=== PATIENT | female | born 2000 | race Caucasian/White ===

== ENCOUNTER 2021-06-30 11:21 | Emergency (ER) | payer MEDICAID, SELFPAY ==
[2021-06-30 11:22] VITALS: BP 133/76; PULSE 94; RESP 16; TEMP 36.6; O2SAT 98; BMI 30.1
--- NOTE | 2021-06-30 11:56 | EDS_ITS ---
HPI History of Present Illness Chief Complaint: Nausea/Vomiting Informant: patient Narrative Narrative: 21-year-old female presenting with vomiting. Patient states she began feeling nauseated last night. She states she threw up and had dry heaves throughout the night. She denies diarrhea. Denies abdominal pain or pelvic pain. Denies vaginal bleeding. She is 29 weeks . She states she has had body aches and chills. Denies fever. She is unsure if the milk she drank last night was bad. Denies other complaints. Prior similar symptoms: Yes Recent Illness/Hospitalization: No PFSH PFS Medical History (Updated 06/30/21 @ 13:[address] Bel Quintero MD) Anxiety Depression Home Medications 1 tab OTHER DAILY 06/30/21 [History Last Taken Unknown] magnesium 100 mg PO DAILY 06/30/21 [History Last Taken Unknown] sertraline [Zoloft] 100 mg PO DAILY 06/30/21 [History Last Taken Unknown] Allergy/AdvReac Type Severity Reaction Status Date / Time No Known Allergies Allergy Verified 06/30/21 11:25 Social History Smoking Status: Current every day smoker tobacco type: smokeless tobacco ROS ROS ED Constitutional Constitutional ED: Denies fever(s) Eyes Eyes: Denies change in vision ENT ENT ED: Denies rhinorrhea or sore throat Cardiovascular Cardiovascular: Denies chest pain or palpitations Respiratory/Chest Respiratory/Chest: Denies cough or dyspnea Gastrointestinal Gastrointestinal: Reports nausea and vomiting; Denies abdominal pain or diarrhea Genitourinary Genitourinary ED: Denies dysuria Musculoskeletal Musculoskeletal: Denies myalgias Integumentary Denies rash Neurologic Neurologic: Denies headache(s) Psychiatric Psychiatric: Denies suicidal thoughts EXAM Physical Exam Const Vital Signs: 06/30/21 11:22 06/30/21 13:25 Temperature 97.8 F Temperature Source Temporal Pulse Rate 94 84 Respiratory Rate 16 Blood Pressure 133/76 H 110/76 Blood Pressure Mean 95 87 Pulse Ox 98 98 Oxygen Delivery Method Room Air Room Air Positive well nourished and well developed General Appearance ED: well developed HEENT Reports normocephalic and head/scalp atraumatic Eyes PERRL and EOMs intact bilaterally Neck supple General: Negative for tenderness Chest Wall inspection of chest normal Resp normal respiratory effort and clear to auscultation bilaterally Cardio regular rate and regular rhythm GI non-tender GI Narrative: Gravid Palpation: soft; Negative for guarding or rebound tenderness present no CVA tenderness Extremity normal to inspection Neuro oriented x3 Sensorium / Orientation: alert Psych mental status grossly normal MDM MDM MDM Narrative Medical decision making narrative: Patient was given IV fluids, Zofran. CBC, chemistries are unremarkable. On reevaluation she is feeling improved. She is able to tolerate p.o. with emergency department. 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 Advised to follow-up as outpatient. Advised to return to the ED for worsening complaints. Lab Data Attestation: I reviewed the patient's lab results. Labs: Laboratory Results - last 24 hr 06/30/21 06/30/21 12:00 12:00 WBC 10.0 RBC 4.07 L Hgb 11.2 L Hct 34.1 L MCV 83.8 MCH 27.5 MCHC 32.8 RDW Std Deviation 39.3 RDW Coeff of Gareth 12.8 Plt Count 151 MPV 10.9 Immature Gran % (Auto) 0.300 Neut % (Auto) 82.1 H Lymph % (Auto) 12.6 L [place] % (Auto) 4.3 Eos % (Auto) 0.3 Baso % (Auto) 0.4 Absolute Neuts (auto) 8.2 H Absolute Lymphs (auto) 1.26 Nucleated RBC % 0 Sodium 137 Potassium 3.6 Chloride 105 Carbon Dioxide 23.0 Anion Gap 9 BUN 5 L Creatinine 0.41 L Estim Creat Clear Calc 181.06 Est GFR (MDRD) Af Amer 255 Est GFR (MDRD) Non-Af 211 BUN/Creatinine Ratio 12.3 Glucose 101 Calcium 9.0 Discharge Plan Triage Chief Complaint: Nausea/Vomiting ED Provider: Bel Quintero Dx/Rx/DC Orders Clinical Impression: Vomiting during Instructions: ED Vomiting (Adult) Prescriptions: No Action sertraline [Zoloft] 100 mg Tablet 100 mg PO DAILY RF: 0 magnesium 100 mg Tablet 100 mg PO DAILY RF: 0 1 tab 1 tab OTHER DAILY RF: 0 Primary Care Provider: Care Physician,No Primary Referrals: Gomez Elliott MD [STAFF PHYSICIAN] - Care Physician,No Primary [Primary Care Provider] - Disposition Disposition: Home, Self Care
[2021-06-30] MEDS: 0.9% Normal Saline 1,000 ML 1000 ML IV (12:09)
[2021-06-30] MEDS: Ondansetron 4 MG/2 ML Vial IV (12:10)
[2021-06-30 12:11] LABS: Absolute Lymphocyte Count 1.26 X10^3/uL (0.83-4.51); Absolute Neutrophil Count 8.2 X10^3/uL (2.0-7.7); Basophil# 0.04 X10^3/uL; Basophil% 0.4 % (0-1); Eosinophil# 0.03 X10^3/uL; Eosinophils% 0.3 % (0-5); Hematocrit 34.1 % (37-47); Hemoglobin 11.2 g/dL (12.0-15.0); Lymphocyte # 1.26 X10^3/ul (0.83-4.51); Lymphocyte % 12.6 % (19-41); Mean Corp Hgb Conc 32.8 g/dL (32-36); Mean Corpuscular Hgb 27.5 pg (27.0-32.0); Mean Corpuscular Volume 83.8 fL (81-99); Mean Platelet Vol. 10.9 fl (6.2-12.0); Monocyte# 0.43 X10^3/uL; Monocyte% 4.3 % (0-10); NRBC Flagged by Analyzer 0 % (0-5); Neutrophil # 8.21 X10^3/uL (2.7-7.7); Neutrophil % 82.1 % (47-70); Platelet Count 151 K/mm3 (150-450); RBC Distribution Width CV 12.8 % (11.6-14.6); RBC Distribution Width SD 39.3 fl (35.1-43.9); Red Blood Count 4.07 M/mm3 (4.2-5.4)
[2021-06-30 12:25] LABS: Anion Gap 9 (5-15); BUN 5 mg/dL (7-18); BUN/Creat Ratio 12.3 RATIO (10-20); Chloride 105 mmol/L (98-107); Creatinine, Serum 0.41 mg/dL (0.55-1.02); EST Glomerular Filtration Rate 211 mL/min (>60); Est Glom Filt Rate - Afr Amer 255 mL/min (>60); Estimated Creatinine Clearance 181.06 ml/min; Glucose 101 mg/dL (74-106); Potassium 3.6 mmol/L (3.5-5.1); Sodium Level 137 mmol/L (136-145)
[2021-06-30 13:25] VITALS: BP 110/76; PULSE 84; O2SAT 98
== END 2021-06-30 14:03 | disposition home or self-care (01) ==
PROVIDERS: Emergency Provider Emergency Medicine
DX: O21.2 Late vomiting of pregnancy (principal); O99.343 Other mental disorders complicating pregnancy, third trimester; O99.333 Smoking (tobacco) complicating pregnancy, third trimester; F41.9 Anxiety disorder, unspecified; F32.9 Major depressive disorder, single episode, unspecified; F17.200 Nicotine dependence, unspecified, uncomplicated; Z3A.29 29 weeks gestation of pregnancy; Z79.899 Other long term (current) drug therapy
CPT/HCPCS: 80048; 85025; 87426; 96374; 99284; J7030; J2405

== ENCOUNTER 2021-08-30 19:50 | Outpatient (CLI) | payer MEDICAID, SELFPAY ==
[2021-08-30 19:55] VITALS: BMI 31.3
[2021-08-30 20:02] VITALS: BP 130/77; PULSE 89; TEMP 36.7
[2021-08-30 21:04] LABS: Color, Urine Yellow (Yellow); Glucose, Dipstick Normal (Normal); Ketone-Dipstick Negative (Negative); Leukocyte Esterase-Dipstick Negative /ul (Negative); Nitrite-Dipstick Negative (Negative); Occult Blood-Urine Negative /ul (Negative); Protein-Dipstick Negative (Negative); Urine Bilirubin Dipstick Negative (Negative); Urine Clarity Clear (Clear); Urine Urobilinogen Normal (Normal); Urine pH 6.5 (5.0 - 8.0)
--- NOTE | 2021-09-02 11:58 | OB.TRI.NOTE ---
HPI - General HPI Narrative ANGEL POWER, is a 30-year-old 2 para 0 at 37-4/7 weeks complains of decreased movement. She denies any vaginal bleeding or leaking of fluid. I spoke with the patient on the phone and instructed her to come to labor and delivery. Maternal Data Information Final JAZZY: 09/16/21 Gestational age: 37 PFSH PFSH Medical History (Updated 09/02/21 @ 11:[address] Starr De La Torre MD) Anxiety Depression Home Medications 1 tab OTHER DAILY 06/30/21 [History Last Taken 08/29/21] magnesium 100 mg PO DAILY 06/30/21 [History Last Taken 08/27/21] sertraline [Zoloft] 100 mg PO DAILY 06/30/21 [History Last Taken 08/29/21] Allergy/AdvReac Type Severity Reaction Status Date / Time No Known Allergies Allergy Verified 08/30/21 20:04 Social History Smoking Status: Current every day smoker tobacco type: smokeless tobacco NST FHR Rate Baby A Baseline: 130 Variability:: Moderate Accelerations:: 15 x 15 Decelerations:: None NST Reactive:: Yes FHR Category:: Category I Uterine Activity:: irritability Assessment & Plan (1) 37 weeks gestation of : (2) Nulliparity: (3) Decreased movement affecting management of :
== END 2021-08-30 21:30 | disposition home or self-care (01) ==
LOC: WPOUT 19:54 → WP 19:55
PROVIDERS: Visit Provider Obstetrics & Gynecology
DX: O36.8130 Decreased fetal movements, third trimester, not applicable or unspecified (principal); O99.333 Smoking (tobacco) complicating pregnancy, third trimester; F17.200 Nicotine dependence, unspecified, uncomplicated; Z3A.37 37 weeks gestation of pregnancy
CPT/HCPCS: 59025; 59050; 81002; 99218; G0378

== ENCOUNTER 2021-09-19 08:35 | Outpatient (CLI) | payer MEDICAID, SELFPAY ==
[2021-09-19 08:52] VITALS: BP 116/71; PULSE 106; PULSE 97; TEMP 36.6; O2SAT 97
[2021-09-19 08:58] VITALS: BMI 31.7
--- NOTE | 2021-09-19 10:36 | OB.TRI.NOTE ---
HPI - General HPI Narrative ANGEL POWER, is a 21 F at 40.3 weeks gestation who presents with contractions that started earlier this morning. Contractions are irregular but increasing in pain. Positive movement. Denies any loss of fluid or vaginal bleeding. Patient is scheduled for induction of labor this week. Maternal Data Information JAZZY Calculator Estimated Delivery Date Method Current WG Current Estimate 09/16/21 Manual 40w 3d PFSH PFS Medical History Anxiety Depression Home Medications 1 tab OTHER DAILY 06/30/21 [History Last Taken 08/29/21] magnesium 100 mg PO DAILY 06/30/21 [History Last Taken 08/27/21] sertraline [Zoloft] 100 mg PO DAILY 06/30/21 [History Last Taken 08/29/21] ferrous sulfate 325 mg PO.IVFORM DAILY 09/19/21 [History Last Taken Unknown] Allergy/AdvReac Type Severity Reaction Status Date / Time No Known Allergies Allergy Verified 08/30/21 20:04 Social History Smoking Status: Current every day smoker tobacco type: smokeless tobacco ROS Eyes Eyes: Denies blurry vision Cardiovascular Cardiovascular: Reports none; Denies chest pain at rest, chest pain with activity or dizziness Respiratory/Chest Respiratory/Chest: Denies cough or dyspnea Gastrointestinal Gastrointestinal: Reports none and other; Denies diarrhea or vomiting Genitourinary Genitourinary: Denies dysuria Musculoskeletal Musculoskeletal: Reports none Integumentary Integumentary: Reports none; Denies rash Neurologic Neurologic: Denies dizziness, headache(s) or other visual disturbances Psychiatric Psychiatric: Reports none Physical Exam Const alert and no apparent distress General Appearance: cooperative Orientation / Consciousness: awake Exam Limitations: no limitations HEENT normocephalic Eyes General Eye: normal appearance of both eyes Neck full ROM Chest inspection of chest normal Resp normal respiratory effort and normal air movement Effort and Inspection: symmetric chest movement Auscultation: clear to auscultation bilaterally Cardio regular rate GI soft to palpation, non-tender and non-distended Inspection: and other Back/Spine normal ROM Extremity full ROM, normal capillary refill and no calf tenderness Skin no rashes or lesions noted Neuro oriented x3 and CN's II-XII intact bilaterally Psych mental status grossly normal Assessment & Plan (1) Uterine contractions: (2) 40 weeks gestation of : PLAN: CE unchanged after monitoring- closed/thick/high Cat. 1 tracing, NST reactive Patient desires to go home Labor precautions reviewed Follow up in office on Tuesday
== END 2021-09-19 23:59 | disposition home or self-care (01) ==
LOC: WPOUT 08:40 → WP 08:41
PROVIDERS: Referring Provider Advanced Practice Midwife; Visit Provider Advanced Practice Midwife
DX: O47.1 False labor at or after 37 completed weeks of gestation (principal); O99.343 Other mental disorders complicating pregnancy, third trimester; O99.333 Smoking (tobacco) complicating pregnancy, third trimester; F17.220 Nicotine dependence, chewing tobacco, uncomplicated; F32.A Depression, unspecified; F41.9 Anxiety disorder, unspecified; Z79.899 Other long term (current) drug therapy; Z3A.40 40 weeks gestation of pregnancy
CPT/HCPCS: 59025; 59050 ×2; G0378 ×2; 99218

== ENCOUNTER 2021-09-19 23:45 | Inpatient (IN) | payer MEDICAID, SELFPAY ==
[2021-09-19 20:02] VITALS: BP 121/71; PULSE 89; TEMP 37.1; O2SAT 98
[2021-09-19 20:04] VITALS: BP 121/71; PULSE 90; TEMP 37.1
[2021-09-19 20:10] VITALS: BMI 31.5
[2021-09-19 20:48] LABS: ROM Internal Control Test YES-OK TO RESULT pt. (Internal QC); ROM Patient Test Negative (Negative)
[2021-09-19] MEDS: Lactated Ringers 1,000 ML 150 ML IV (22:30)
[2021-09-19] MEDS: fentaNYL 100 MCG/2 ML Ampul 50 MCG IV (22:37)
[2021-09-19 22:50] VITALS: O2SAT 99
[2021-09-19 22:51] VITALS: BP 124/74; PULSE 81; TEMP 36.4
[2021-09-20] VITALS (73 sets, daily range): BP systolic 93–140; BP diastolic 52–98; PULSE 82–122; RESP 14–18; TEMP 36.1–37.8; O2SAT 94–100
[2021-09-20] MEDS: Lactated Ringers 500 ML 999 ML IV (00:10)
[2021-09-20 00:15] LABS: Absolute Lymphocyte Count 2.11 X10^3/uL (0.83-4.51); Absolute Neutrophil Count 10.9 X10^3/uL (2.0-7.7); Basophil# 0.08 X10^3/uL; Basophil% 0.6 % (0-1); Eosinophil# 0.19 X10^3/uL; Eosinophils% 1.3 % (0-5); Hemoglobin 11.7 g/dL (12.0-15.0); Lymphocyte # 2.11 X10^3/ul (0.83-4.51); Lymphocyte % 14.7 % (19-41); Mean Corp Hgb Conc 30.8 g/dL (32-36); Mean Corpuscular Hgb 23.8 pg (27.0-32.0); Mean Corpuscular Volume 77.4 fL (81-99); Mean Platelet Vol. 11.1 fl (6.2-12.0); Monocyte# 0.98 X10^3/uL; Monocyte% 6.8 % (0-10); NRBC Flagged by Analyzer 0 % (0-5); Neutrophil # 10.87 X10^3/uL (2.7-7.7); Neutrophil % 75.9 % (47-70); Platelet Count 236 K/mm3 (150-450); RBC Distribution Width CV 15.1 % (11.6-14.6); RBC Distribution Width SD 41.4 fl (35.1-43.9); Red Blood Count 4.91 M/mm3 (4.2-5.4); White Blood Count 14.3 K/mm3 (4.4-11.0)
[2021-09-20] MEDS: Ondansetron 4 MG/2 ML Vial IV ×2 (00:24→11:54)
[2021-09-20] MEDS: Lactated Ringers 1,000 ML 200 ML IV ×2 (00:40→04:55)
--- NOTE | 2021-09-20 01:05 | PCM.HP.OB ---
HPI - General General Date of Admission: 09/19/21 HPI Narrative ANGEL POWER, is a 21 F at 40.3 who presents to triage with increasing contractions and pain. She was discharged from triage yesterday due to CE of closed and no change. She went home and continued to have contractions. Positive movement and denies any loss of fluid or vaginal bleeding. Rating pain of contractions 8/10. CE now is 3.5/80/-1. complicated by Covid-19 positive status in second trimester, anemia, and GBS positive. Maternal Data Information JAZZY Calculator Estimated Delivery Date Method Current WG Current Estimate 09/16/21 Manual 40w 4d PFSH PFSH Medical History (Updated 09/20/21 @ 08:19 by Nyasia Mendoza CNM) Anxiety Depression Home Medications 1 tab OTHER DAILY 06/30/21 [History Last Taken 09/17/21] magnesium 100 mg PO DAILY 06/30/21 [History Last Taken 09/17/21] sertraline [Zoloft] 100 mg PO DAILY 06/30/21 [History Last Taken 08/29/21] ferrous sulfate 325 mg PO.IVFORM DAILY 09/19/21 [History Last Taken 09/17/21] Allergy/AdvReac Type Severity Reaction Status Date / Time No Known Allergies Allergy Verified 09/19/21 20:11 Surgical History History of surgery Social History Smoking Status: Current every day smoker tobacco type: smokeless tobacco History Elective abortions Hx Para 0 Spontaneous abortions Hx # Term Pregnancies Ectopic pregnancies Hx # Pregnancies Multiple births # of living children NST FHR Rate Baby A Baseline: 150 Variability:: Moderate Accelerations:: 15 x 15 Decelerations:: None NST Reactive:: Yes FHR Category:: Category I Uterine Activity:: TOCO 3-5 minutes ROS Eyes Eyes: Denies blurry vision, change in vision or spots in vision ENT HEENT: Denies dizziness or headache(s) Cardiovascular Cardiovascular: Denies abdominal pain, chest pain or dyspnea Respiratory/Chest Respiratory/Chest: Denies cough, dyspnea, shortness of breath at rest or shortness of breath with exertion Gastrointestinal Gastrointestinal: Denies abdominal pain, diarrhea or vomiting Genitourinary Genitourinary: Denies change in urinary stream, difficulty urinating or dysuria Musculoskeletal Musculoskeletal: Reports none Integumentary Integumentary: Denies rash Neurologic Neurologic: Denies dizziness, headache(s), memory loss or weakness Psychiatric Psychiatric: Reports none Vital Signs Vital Signs Vital Signs: 09/19/21 20:02 09/19/21 20:04 09/19/21 22:50 Temperature 98.7 F 98.8 F Temperature Source Temporal Pulse Rate 89 90 Blood Pressure 121/71 H 121/71 H BP Systolic 121 121 BP Diastolic 71 71 Pulse Ox 98 99 09/19/21 22:51 09/20/21 01:18 09/20/21 01:19 Temperature 97.5 F L Temperature Source Pulse Rate 81 99 91 Blood Pressure 124/74 H 122/79 H BP Systolic 124 122 BP Diastolic 74 79 Pulse Ox 100 09/20/21 01:21 09/20/21 01:23 09/20/21 01:26 Temperature Temperature Source Pulse Rate 99 98 82 Blood Pressure 123/84 H 140/98 H BP Systolic 123 140 BP Diastolic 84 98 Pulse Ox 97 09/20/21 01:28 09/20/21 01:31 09/20/21 01:33 Temperature Temperature Source Pulse Rate 98 93 87 Blood Pressure 132/74 H BP Systolic 132 BP Diastolic 74 Pulse Ox 98 94 98 09/20/21 01:36 09/20/21 01:38 09/20/21 01:41 Temperature Temperature Source Pulse Rate 86 91 91 Blood Pressure 139/82 H 132/67 H BP Systolic 139 132 BP Diastolic 82 67 Pulse Ox 95 09/20/21 01:43 09/20/21 01:46 09/20/21 01:48 Temperature Temperature Source Pulse Rate 105 H 116 H 102 H Blood Pressure 119/77 BP Systolic 119 BP Diastolic 77 Pulse Ox 97 98 09/20/21 01:52 09/20/21 01:53 09/20/21 01:57 Temperature Temperature Source Pulse Rate 106 H 101 H 96 Blood Pressure 128/68 H 132/72 H BP Systolic 128 132 BP Diastolic 68 72 Pulse Ox 97 09/20/21 01:58 09/20/21 01:59 09/20/21 02:01 Temperature 97.2 F L Temperature Source Pulse Rate 102 H 101 H Blood Pressure 127/71 H BP Systolic 127 BP Diastolic 71 Pulse Ox 98 09/20/21 02:03 09/20/21 02:06 09/20/21 02:08 Temperature 97.2 F L Temperature Source Temporal Pulse Rate 100 93 101 H Blood Pressure 128/72 H BP Systolic 128 BP Diastolic 72 Pulse Ox 97 97 09/20/21 02:11 09/20/21 02:13 09/20/21 02:18 Temperature Temperature Source Pulse Rate 89 98 100 Blood Pressure 123/67 H 122/63 H BP Systolic 123 122 BP Diastolic 67 63 Pulse Ox 97 97 09/20/21 02:21 09/20/21 02:23 09/20/21 02:26 Temperature Temperature Source Pulse Rate 91 91 94 Blood Pressure 122/65 H 117/64 BP Systolic 122 117 BP Diastolic 65 64 Pulse Ox 97 09/20/21 02:28 09/20/21 02:31 09/20/21 02:33 Temperature Temperature Source Pulse Rate 99 88 99 Blood Pressure 116/61 BP Systolic 116 BP Diastolic 61 Pulse Ox 97 97 09/20/21 02:36 09/20/21 02:38 09/20/21 02:41 Temperature Temperature Source Pulse Rate 86 103 H 86 Blood Pressure 117/58 L 117/59 L BP Systolic 117 117 BP Diastolic 58 59 Pulse Ox 97 09/20/21 02:43 09/20/21 02:46 09/20/21 02:48 Temperature Temperature Source Pulse Rate 97 87 103 H Blood Pressure 117/61 BP Systolic 117 BP Diastolic 61 Pulse Ox 97 97 09/20/21 02:52 09/20/21 02:53 09/20/21 02:57 Temperature Temperature Source Pulse Rate 90 99 96 Blood Pressure 121/63 H 116/59 L BP Systolic 121 116 BP Diastolic 63 59 Pulse Ox 97 09/20/21 02:58 09/20/21 03:03 09/20/21 03:06 Temperature Temperature Source Pulse Rate 104 H 93 113 H Blood Pressure 129/60 H 126/60 H BP Systolic 129 126 BP Diastolic 60 60 Pulse Ox 98 98 09/20/21 03:54 09/20/21 05:06 09/20/21 05:07 Temperature 97.0 F L 97.7 F L 97.7 F L Temperature Source Temporal Temporal Pulse Rate 112 H 96 Blood Pressure 112/59 L 115/59 L BP Systolic 112 115 BP Diastolic 59 59 Pulse Ox 98 96 09/20/21 06:26 09/20/21 07:19 09/20/21 07:55 Temperature 97.7 F L 100.1 F H 98.9 F Temperature Source Temporal Temporal Pulse Rate 98 98 Blood Pressure 109/55 L 109/57 L BP Systolic 109 109 BP Diastolic 55 57 Pulse Ox 96 97 Weight Weight: 178 lb 3.2 oz Body Mass Index (BMI) 31.5 Physical Exam Const alert, oriented x3 and no apparent distress General Appearance: cooperative Orientation / Consciousness: awake Exam Limitations: no limitations HEENT normocephalic Head and Scalp: normal to inspection Eyes General Eye: normal appearance of both eyes Neck full ROM and no lymphadenopathy Lymph Lymphatic: no lymphadenopathy noted Chest inspection of chest normal Resp normal respiratory effort, normal air movement and clear to auscultation bilaterally Effort and Inspection: able to speak in complete sentences and symmetric chest movement Cardio regular rate and regular rhythm GI normal to inspection, nondistended, normoactive bowel sounds Manual OB Exam: presentation cephalic, dilated 4, effaced 80 and station 0 Amniotic Fluid: clear amniotic fluid Back/Spine normal ROM Extremity full ROM and no calf tenderness Skin no rashes or lesions noted General Skin Exam: no breakdown Neuro oriented x3 and CN's II-XII intact bilaterally Psych mental status grossly normal and thought process normal Labs Labs Labs: Blood Type O POSITIVE Antibody Screen NEGATIVE Hct 38.0 % (37-47) Hgb 11.7 g/dL (12.0-15.0) L Assessment & Plan (1) 40 weeks gestation of : (2) Spontaneous onset of labor: (3) Anemia affecting first : (4) Positive GBS test: (5) COVID-19 affecting in second trimester: PLAN: Admit to labor and delivery Routine labs Start IV and titrate per orders Start PCN IV and continue every 4 hours for GBS positive Epidural when indicated Anticipate Dr. Alvarez notified of admission and is collaborating physician (6) Depression: (7) Anxiety:
[2021-09-20] MEDS: fentaNYL-bupivacaine (epidural) 100 ML BAG EPIDURAL ×2 (01:47→06:30)
[2021-09-20] MEDS: Penicillin G 3,000,000 Units 50 ML 100 UNITS IV (04:55)
[2021-09-20] MEDS: Acetaminophen 500 MG Tablet PO (08:29)
[2021-09-20] MEDS: Oxytocin 30 units/NS 500 ml 30 UNITS/500 ML IV.SOLN 334 UNITS IV (09:09)
--- NOTE | 2021-09-20 10:45 | EX.PCM.OBRPT ---
Assessment & Plan (1) (spontaneous vaginal delivery): (2) Laceration, obstetrical, second degree: Maternal Data Information JAZZY Calculator Estimated Delivery Date Method Current WG Current Estimate 09/16/21 Manual 40w 4d Vaginal Delivery Maternal Presentation Maternal Presentation: Patient at 40.4 weeks gestation that presented to triage in spontaneous labor. Operative Information Date of Procedure: 09/20/21 Pre-Operative Diagnosis: Term gestation, Spontaneous onset of labor Post-Operative Diagnosis: Same, live male infant Surgery / Procedure Performed: Spontaneous Vaginal Delivery Type of Anesthesia: Epidural Drain: Calabrese to straight drain Estimated Blood Loss: 400 Time of Delivery: 09:06 Findings Description of Procedure: Called to patient's room for S.R.O.M for clear fluid and complete dilation. Patient pushing well with contractions. With minimal effort, infant head delivered followed immediately by anterior, then posterior shoulder and remainder of body. Vigorous male placed on maternal abdomen and was attended to by nursing staff. Pitocin IV started for active management of the third stage of labor. Cord blood collected from 3 vessel cord. Cord clamped and cut by FOB after 3 minute delay. Placenta delivered spontaneously and intact. After inspection, a second degree vaginal and perineal laceration present and repaired in usual fashion with 3-0 Rapide. Hemostasis obtained. Fundus Firm 2 below U. Ice to perineum. EBL 400 cc. APGARS 9/9. Patient plans on formula feeding infant. Patient and infant bonding well at this time. Presentation: Vertex Amniotic Membrane Rupture Type: Spontaneous Time of Membrane Rupture: 0804 Amniotic Fluid Description: Clear Placental Delivery Description: Spontaneous Placenta Disposition: [facility] Cord Vessel Description: 3 Vessels Cord Entanglement: None Infant A Gender: Male (1 minute): 9 (5 minute): 9 Delayed Cord Clamping: Yes Post Vaginal Delivery Medications Given After Delivery: IV Pitocin Episiotomy Description: None Laceration: Perineal Extension/lac, Vaginal Extension/lac and 2nd degree Complication Complications: None
[2021-09-20] MEDS: Benzocaine/Lanolin/Aloe Vera 1 SPRAY EACH TOPICAL (11:54)
[2021-09-20] MEDS: 0.9% Saline Lock 10 ML Syringe IV ×2 (12:00→21:12)
--- NOTE | 2021-09-20 13:04 | NURSING ---
Epidural pump infused until provider was finished repairing perineum. Extensive perineal repair. Patient cannot yet lift her legs. Will discontinue leach catheter when patient can lift her legs in bed. Provider aware.
[2021-09-20] MEDS: Naproxen 500 MG Tablet PO (17:17)
[2021-09-20] MEDS: Senna/Docusate Sodium 1 Tablet PO (17:17)
[2021-09-20] MEDS: Acetaminophen 500 MG Tablet 1000 MG PO (19:37)
[2021-09-20] MEDS: Hydrocortisone 2.5% Crm 1 APPLIC TOPICAL (21:12)
[2021-09-20] MEDS: Sertraline 100 MG Tablet PO (21:12)
[2021-09-21] VITALS (9 sets, daily range): BP systolic 103–119; BP diastolic 58–59; PULSE 76–88; RESP 16–18; TEMP 36.6–36.8; O2SAT 97–98
[2021-09-21] MEDS: Acetaminophen 500 MG Tablet 1000 MG PO ×3 (01:24→13:54)
[2021-09-21] MEDS: Naproxen 500 MG Tablet PO ×2 (01:24→11:35)
--- NOTE | 2021-09-21 08:42 | PN.OBGYN_ITS ---
Subjective Subjective Doing well per patient and nursing staff. Ambulating and taking PO without difficulty. Voiding and passing flatus. Pain controlled. Bottle feeding. Denies headache, visual changes, chest pain, shortness of breath, leg pain or increased bleeding. Lochia normal. Objective Data Objective Data Vital Signs: Vital Signs Temp Pulse Resp BP Pulse Ox 97.9 F 79 16 103/58 L 98 09/21/21 07:30 09/21/21 07:31 09/21/21 07:29 09/21/21 07:30 09/21/21 07:31 Oxygen Delivery Method Room Air Weight: 178 lb 3.2 oz Body Mass Index (BMI) 31.5 Intake & Output: Intake and Output for Last 24 Hours 09/19/21 09/20/21 09/21/21 23:59 23:59 23:59 Intake Total 3660.35 / 3660.35 Output Total 100 / 100 1040 / 1040 Balance -100 / 125 2620.35 / 2620.35 Lab / Micro Data Result Diagrams: 09/19/21 22:30 Micro: Microbiology 09/19/21 23:55 Nasal Secretion SARS-CoV-2 Antigen (Rapid) - Final ROS Constitutional Constitutional: Reports systems reviewed and no addt'l complaints, except as documented; Denies headache(s) Eyes Eyes: Denies acute decrease in peripheral vision, blurry vision or change in vision ENT HEENT: Reports systems reviewed and no addt'l complaints, except as documented Cardiovascular Cardiovascular: Denies chest pain or dizziness Respiratory/Chest Respiratory/Chest: Denies cough, dyspnea, dyspnea on exertion, shortness of zaria th at rest or shortness of breath with exertion Gastrointestinal Gastrointestinal: Denies abdominal pain, diarrhea, nausea or vomiting Genitourinary Genitourinary: Denies abdominal discomfort Musculoskeletal Musculoskeletal: Denies limited range of motion Integumentary Integumentary: Reports systems reviewed and no addt'l complaints, except as documented Neurologic Neurologic: Reports systems reviewed and no addt'l complaints, except as documented Psychiatric Psychiatric: Reports systems reviewed and no addt'l complaints, except as documented Endocrine Endocrinology: Reports systems reviewed and no addt'l complaints, except as documented Hematologic/Lymphatic Hematologic/Lymphatic: Reports systems reviewed and no addt'l complaints, except as documented Allergic/Immunologic Allergic/Immunologic: Reports systems reviewed and no addt'l complaints, except as documented Physical Exam Const alert and oriented x3 General Appearance: cooperative Orientation / Consciousness: awake, oriented to person, oriented to place and oriented to time Exam Limitations: no limitations HEENT normocephalic Head and Scalp: normal to inspection, normocephalic and atraumatic Face and Sinus: normal facial exam Eyes General Eye: normal appearance of both eyes Neck full ROM Chest Chest: symmetrical chest wall rise Resp normal respiratory effort and normal air movement Auscultation: clear to auscultation bilaterally Cardio regular rate, regular rhythm, S1 normal heart sound, S2 normal heart sound, no murmurs, no rub, no gallops and no clicks GI normal to inspection, nondistended, normoactive bowel sounds and non-tender Bladder / Kidney Exam: no CVA tenderness Back/Spine normal ROM Extremity normal to inspection and full ROM Skin no rashes or lesions noted Neuro oriented x3, CN's II-XII intact bilaterally and moves all extremities Sensorium / Orientation: awake, alert and oriented to person Motor Exam: clonus absent Deep Tendon Reflexes: Rt Patellar (L4): 2+ and Lt Patellar (L4): 2+ Assessment & Plan (1) Laceration, obstetrical, second degree: (2) (spontaneous vaginal delivery): (3) Anxiety: (4) Depression: PLAN: 1) Routine PP care 2) Pain management 3) Vitals stable 4) Would like D/C home today 5) Follow up in 2 weeks and 6 week PP.
--- NOTE | 2021-09-21 13:09 | PCM.DC.SUM ---
Providers Date of Admission: 09/19/21 Primary Care Physician: Mary Primary Care Phys Reason For Visit: LABOR Diagnosis Discharge Diagnosis (1) Laceration, obstetrical, second degree: Status: Acute Code(s): O70.1 - Second degree perineal laceration during delivery (2) (spontaneous vaginal delivery): Status: Acute Code(s): O80 - Encounter for full-term uncomplicated delivery (3) Anxiety: Status: Acute Code(s): F41.9 - Anxiety disorder, unspecified (4) Depression: Status: Acute Code(s): F32.A - Depression, unspecified Medications at Discharge Home Medications 1 tab OTHER DAILY 06/30/21 sertraline [Zoloft] 100 mg PO DAILY 06/30/21 acetaminophen 1,000 mg PO Q6H PRN PRN #0 tab 09/21/21 benzocaine-menthol [Dermoplast (with menthol)] 1 spray TOPICAL TID PRN PRN #0 g 09/21/21 naproxen 500 mg PO Q8H PRN PRN #0 tab 09/21/21 Weight / BMI Weight Weight: 178 lb 3.2 oz Body Mass Index (BMI) 31.5 ABG / Lab / Microbiology Data Result Diagrams: 09/19/21 22:30 Microbiology: Microbiology 09/19/21 23:55 Nasal Secretion SARS-CoV-2 Antigen (Rapid) - Final Meaningful Use Info Meaningful Use Diagnoses (Choose all that apply): None applicable Discharge Plan Admission Admit Date/Time: 09/19/21 23:45 Primary Reason for Your Visit: vaginal delivery Attending Provider: Nyasia Mendoza Primary Care Provider: Care Physician,No Primary Instructions Patient Instructions: After a Vaginal Discharge Orders/Prescriptions Prescriptions: New Dermoplast (with menthol) 20-0.5 % Aerosol 1 spray topical TID PRN PRN (Reason: perineal discomfort) Qty: 0 RF: 0 acetaminophen 500 mg Tablet 1,000 mg PO Q6H PRN PRN (Reason: Pain 1-10 Or Fever) Qty: 0 RF: 0 naproxen 500 mg Tablet 500 mg PO Q8H PRN PRN (Reason: Pain Score 1-3) Qty: 0 RF: 0 Continued sertraline [Zoloft] 100 mg Tablet 100 mg PO DAILY RF: 0 1 tab 1 tab OTHER DAILY RF: 0 Discontinued magnesium 100 mg Tablet 100 mg PO DAILY RF: 0 ferrous sulfate 325 mg PO.IVFORM DAILY RF: 0 Referrals / Follow Up: Care Physician,No Primary [Primary Care Provider] - Disposition Disposition (needs filled in before D/C Order can be placed): Home, Self Care
[2021-09-21] MEDS: Senna/Docusate Sodium 1 Tablet PO (13:54)
== END 2021-09-21 15:25 | disposition home or self-care (01) ==
LOC: WPOUT 23:47 → WP 23:47
PROVIDERS: Admitting Provider Advanced Practice Midwife; Visit Provider Advanced Practice Midwife
DX: O42.02 Full-term premature rupture of membranes, onset of labor within 24 hours of rupture (principal); O99.824 Streptococcus B carrier state complicating childbirth; D64.9 Anemia, unspecified; O99.334 Smoking (tobacco) complicating childbirth; F17.290 Nicotine dependence, other tobacco product, uncomplicated; O99.344 Other mental disorders complicating childbirth; F32.A Depression, unspecified; F41.9 Anxiety disorder, unspecified; O70.1 Second degree perineal laceration during delivery; Z3A.40 40 weeks gestation of pregnancy; Z79.899 Other long term (current) drug therapy; Z86.16 Personal history of COVID-19
CPT/HCPCS: 59025; 59050; 84112; 85025; 86850; 86900; 86901; 87426; 99218; J7120; A4216; G0378; J2405

== ENCOUNTER 2024-08-07 11:47 | Emergency (ER) | payer BC, SELFPAY ==
[2024-08-07 11:48] VITALS: BP 140/83; PULSE 99; RESP 19; TEMP 36.6; O2SAT 100
--- NOTE | 2024-08-07 12:27 | US_ITS ---
STUDY: SECOND AND THIRD TRIMESTER OBSTETRICAL ULTRASOUND - LIMITED REASON FOR EXAM: Female, 24 years old Vaginal bleeding LMP: April 07, 2024. PRIOR ULTRASOUND: None. TECHNIQUE: Transabdominal TECHNICAL QUALITY: Adequate. FINDINGS: There is a single intrauterine fetus. The fetus is in a cephalic presentation. There is demonstrated cardiac activity with a heart rate of 160 bpm. There is a normal amniotic fluid volume. The largest amniotic fluid pocket measures 4.8 cm. The amniotic fluid index (MISSY) is within normal limits. The placenta is anterior in location and is not low lying. There are Grade 0 placental changes. The cervix measures 2.6 cm in length. BIOMETRY: Age by LMP: 17 weeks, 3 days. JAZZY by LMP: January 12, 2025.. US/OB Limited (No Biometrics) IMPRESSION: Single live intrauterine gestation with a mean gestational age of 17 weeks and 3 days. Electronically Signed: Sergio Munson MD at 13:52 EST ,
--- NOTE | 2024-08-07 12:27 | ED.VIS.FEGU ---
HPI HPI - Female History of Present Illness Chief Complaint: Vag Bld, Preg Informant: patient Bleeding Issue: Positive for Vaginal bleeding Onset: Today Context: Sudden Onset Timing: Continuous Current Severity: Spotting Maximum Severity: Spotting Associated Symptoms Associated Symptoms: Negative for Dysuria, Frequency or Hematuria P: 1 Ab: 1 Narrative Narrative: Patient presents with vaginal bleeding that began today. Patient states it was bright red blood. Patient states it was less than her normal menstrual period. Patient states there is only some spotting. Patient is approximately 17 weeks and 3 days . Patient is 3 para 1 with 1 spontaneous miscarriage. Patient denies any cramping or pain. Patient denies any urinary complaints. Patient denies any fevers or chills. PFSH PFSH Medical History Anxiety Depression Home Medications ?Medication ?Instructions ?Recorded ?Last Taken ?Type 1 tab OTHER DAILY 06/30/21 09/17/21 History sertraline 100 mg tablet (Zoloft) 100 mg PO DAILY 06/30/21 08/29/21 History acetaminophen 500 mg tablet 1,000 mg (2 x 500 mg) PO Q6H PRN 09/21/21 Unknown Rx PRN Pain 1-10 Or Fever #0 tabs benzocaine 20 %-menthol 0.5 % 1 spray topical TID PRN PRN 09/21/21 Unknown Rx topical aerosol (Dermoplast (with perineal discomfort #0 grams menthol)) naproxen 500 mg tablet 500 mg PO Q8H PRN PRN Pain Score 09/21/21 Unknown Rx 1-3 #0 tabs Allergy/AdvReac Type Severity Reaction Status Date / Time No Known Allergies Allergy Verified 09/19/21 20:11 Surgical History History of surgery Social History Smoking Status: Former smoker ROS ROS ED Constitutional Constitutional ED: Denies chills or fever(s) Eyes Eyes: Denies blurry vision or change in vision ENT ENT ED: Denies rhinorrhea or sore throat Cardiovascular Cardiovascular: Denies chest pain or palpitations Respiratory/Chest Respiratory/Chest: Denies cough or dyspnea Gastrointestinal Gastrointestinal: Denies nausea or vomiting Genitourinary Genitourinary ED: Denies dysuria or hematuria Musculoskeletal Musculoskeletal: Denies back pain or neck pain Integumentary Denies abscess or rash Neurologic Neurologic: Denies headache(s) or weakness Allergic/Immunologic Allergic/Immunologic ED: Denies mouth swelling or urticaria EXAM Physical Exam Const Vital Signs: 08/07/24 11:48 08/07/24 13:47 Temperature 97.8 F Temperature Source Temporal Pulse Rate 99 81 Respiratory Rate 19 H 18 Blood Pressure 140/83 H 117/72 Blood Pressure Mean 102 87 Pulse Ox 100 98 Oxygen Delivery Method Room Air Room Air Positive well nourished and well developed General Appearance ED: well developed and NAD HEENT Reports moist mucous membranes Neck supple and no JVD Resp normal respiratory effort and clear to auscultation bilaterally Cardio regular rate and regular rhythm GI soft to palpation, non-tender and non-distended Neuro oriented x3, CN's II-XII intact bilaterally and no sensory deficits noted Sensorium / Orientation: alert Motor Exam: strength 5/5 throughout Psych mental status grossly normal MDM MDM MDM Narrative Medical decision making narrative: Differential diagnosis includes placenta previa, spontaneous miscarriage, placental abruption, and uterine fibroid. CBC will be obtained to assess for leukocytosis and anemia. Quantitative hCG will be obtained to assess for status. Urinalysis will be obtained to assess for urinary tract infection and hematuria. Basic metabolic profile will be obtained to assess for electrolyte abnormality and renal function. Transvaginal ultrasound will be obtained to assess for viability, placental abruption, and placenta previa. heart tones will be obtained to assess for viability. History & Record Review Additional record(s) reviewed:: Prior labs (Prior labs were reviewed. Patient is O+ blood type.) Lab Data Attestation: I reviewed the patient's lab results. Lab results narrative: CBC was reviewed and was within normal limits. Basic metabolic profile was reviewed and was within normal limits. Quantitative hCG was reviewed [place] [address]. Urinalysis was reviewed. There is no evidence of urinary tract infection or hematuria. Labs: Laboratory Results - last 24 hr 08/07/24 08/07/24 12:40 12:55 WBC 7.6 RBC 4.46 Hgb 12.2 Hct 37.6 MCV 84.3 MCH 27.4 MCHC 32.4 RDW Std Deviation 45.5 H RDW Coeff of Gareth 14.9 H Plt Count 124 L MPV 11.6 Immature Gran % (Auto) 0.500 Neut % (Auto) 74.2 H Lymph % (Auto) 17.5 L [place] % (Auto) 5.9 Eos % (Auto) 1.6 Baso % (Auto) 0.3 Absolute Neuts (auto) 5.7 Absolute Lymphs (auto) 1.33 Nucleated RBC % 0 Sodium 137 Potassium 3.7 Chloride 109 H Carbon Dioxide 22.0 Anion Gap 6 BUN 8 Creatinine 0.41 L Est GFR (MDRD) Af Amer 244 Est GFR (MDRD) Non-Af 201 BUN/Creatinine Ratio 19.3 Glucose 96 Calcium 8.6 HCG, Quant 69675 H Urine Color Yellow Urine Clarity Clear Urine pH 6.5 Ur Specific [place] 1.015 Urine Protein 15 H Urine Glucose (UA) Normal Urine Ketones Negative Urine Occult Blood Negative Urine Nitrite Negative Urine Bilirubin Negative Urine Urobilinogen Normal Ur Leukocyte Esterase 25 H Urine RBC 0 SEEN Urine WBC 0-5 SEEN Ur Squamous Epith Cells 0-5 SEEN Urine Bacteria 1+ Urine Mucus 0 SEEN Radiography Diagnostic Testing: Clinical Impression(s) from Imaging Studies Obstetrics Ultrasound 08/07/24 12:27 IMPRESSION: Single live intrauterine gestation with a mean gestational age of 17 weeks and 3 days. Electronically Signed: Sergio Munson MD at 13:52 EST , Pelvic ultrasound was obtained. There is a single live intrauterine gestation with a gestational age of 17 weeks 3 days. heart rate was 160. This was interpreted by the radiologist and was also dependently reviewed by myself. Treatment and Re-Evaluation Narrative: Patient was advised of her findings. Patient was instructed to get plenty of rest. Patient was instructed on vaginal rest. 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 Patient understood and was agreeable with the plan. All questions were answered. Discharge Plan Triage Chief Complaint: Vag Bld, Preg ED Provider: Renato Butt Dx/Rx/DC Orders Clinical Impression: Threatened miscarriage, Intrauterine Instructions: ED Established ... Prescriptions: No Action sertraline [Zoloft] 100 mg Tablet 100 mg PO DAILY 1 tab 1 tab OTHER DAILY Dermoplast (with menthol) 20-0.5 % Aerosol 1 spray topical TID PRN PRN (Reason: perineal discomfort) Qty: 0 0RF Protocol: *Topical Application Instructions APPLICATION INSTRUCTIONS: 1 spray 3 times a day as needed for perineal discomfort acetaminophen 500 mg Tablet 1,000 mg PO Q6H PRN PRN (Reason: Pain 1-10 Or Fever) Qty: 0 0RF naproxen 500 mg Tablet 500 mg PO Q8H PRN PRN (Reason: Pain Score 1-3) Qty: 0 0RF Primary Care Provider: Care Physician,No Primary Referrals: Starr De La Torre MD [Med Staff - Active Staff] - 2 Days Care Physician,No Primary [Primary Care Provider] - Print Language: Pashto Disposition Disposition: Home, Self Care
[2024-08-07 12:59] LABS: Mucous, Urine 0 SEEN /hpf (<or=2+); Red Blood Cells-Urine 0 SEEN /hpf (0-5)
[2024-08-07 13:04] LABS: Absolute Lymphocyte Count 1.33 X10^3/uL (0.83-4.51); Absolute Neutrophil Count 5.7 X10^3/uL (2.0-7.7); Basophil# 0.02 X10^3/uL; Basophil% 0.3 % (0-1); Eosinophil# 0.12 X10^3/uL; Eosinophils% 1.6 % (0-5); Hematocrit 37.6 % (37-47); Hemoglobin 12.2 g/dL (12.0-15.0); Lymphocyte # 1.33 X10^3/ul (0.83-4.51); Lymphocyte % 17.5 % (19-41); Mean Corp Hgb Conc 32.4 g/dL (32-36); Mean Corpuscular Hgb 27.4 pg (27.0-32.0); Mean Corpuscular Volume 84.3 fL (81-99); Mean Platelet Vol. 11.6 fl (6.2-12.0); Monocyte# 0.45 X10^3/uL; Monocyte% 5.9 % (0-10); NRBC Flagged by Analyzer 0 % (0-5); Neutrophil # 5.66 X10^3/uL (2.7-7.7); Neutrophil % 74.2 % (47-70); Platelet Count 124 K/mm3 (150-450); RBC Distribution Width CV 14.9 % (11.6-14.6); RBC Distribution Width SD 45.5 fl (35.1-43.9); Red Blood Count 4.46 M/mm3 (4.2-5.4); White Blood Count 7.6 K/mm3 (4.4-11.0)
[2024-08-07 13:04] LABS: Color, Urine Yellow (Yellow); Glucose, Dipstick Normal (Normal); Ketone-Dipstick Negative (Negative); Leukocyte Esterase-Dipstick 25 /ul (Negative); Nitrite-Dipstick Negative (Negative); Occult Blood-Urine Negative /ul (Negative); Protein-Dipstick 15 mg/dl (Negative); Specific Gravity, Urine 1.015 (1.002-1.030); Urine Bilirubin Dipstick Negative (Negative); Urine Clarity Clear (Clear); Urine Urobilinogen Normal (Normal); Urine pH 6.5 (5.0 - 8.0)
[2024-08-07 13:22] LABS: Anion Gap 6 (5-15); BUN 8 mg/dL (7-18); BUN/Creat Ratio 19.3 RATIO (10-20); Calcium,Total 8.6 mg/dL (8.5-10.1); Chloride 109 mmol/L (98-107); Creatinine, Serum 0.41 mg/dL (0.55-1.02); EST Glomerular Filtration Rate 201 mL/min (>60); Est Glom Filt Rate - Afr Amer 244 mL/min (>60); Glucose 96 mg/dL (74-106); Potassium 3.7 mmol/L (3.5-5.1); Sodium Level 137 mmol/L (136-145)
[2024-08-07 13:26] LABS: Bacteria 1+ /hpf (None Seen); Squamous Epithelial Cells - UA 0-5 SEEN /hpf (5-10); White Blood Cells 0-5 SEEN /hpf (0-5)
[2024-08-07 13:41] LABS: hCG Titer Quant., Serum 13964 mIU/mL (1-3)
[2024-08-07 13:47] VITALS: BP 117/72; PULSE 81; RESP 18; O2SAT 98
[2024-08-07 15:23] VITALS: BP 112/79; PULSE 89; RESP 16; TEMP 36.6; O2SAT 100
== END 2024-08-07 15:24 | disposition home or self-care (01) ==
PROVIDERS: Emergency Provider Emergency Medicine; Visit Provider Emergency Medicine
DX: O20.0 Threatened abortion (principal); Z3A.17 17 weeks gestation of pregnancy; Z87.891 Personal history of nicotine dependence
CPT/HCPCS: 76815; 80048; 81001; 84702; 85025; 99282; A4216

== ENCOUNTER 2025-01-07 07:16 | Inpatient (IN) | payer BC, SELFPAY ==
[2025-01-07] VITALS (44 sets, daily range): BP systolic 100–132; BP diastolic 51–79; PULSE 79–167; RESP 15–18; TEMP 36.3–37.3; O2SAT 97–100; BMI 37.2
[2025-01-07] MEDS: Lactated Ringers 1,000 ML 50 ML IV (07:45)
[2025-01-07 07:58] LABS: Absolute Lymphocyte Count 1.29 X10^3/uL (0.83-4.51); Absolute Neutrophil Count 6.8 X10^3/uL (2.0-7.7); Basophil# 0.04 X10^3/uL; Basophil% 0.4 % (0-1); Eosinophil# 0.25 X10^3/uL; Eosinophils% 2.8 % (0-5); Hematocrit 37.7 % (37-47); Hemoglobin 12.5 g/dL (12.0-15.0); Lymphocyte # 1.29 X10^3/ul (0.83-4.51); Lymphocyte % 14.3 % (19-41); Mean Corp Hgb Conc 33.2 g/dL (32-36); Mean Corpuscular Hgb 27.7 pg (27.0-32.0); Mean Corpuscular Volume 83.4 fL (81-99); Mean Platelet Vol. 10.2 fl (6.2-12.0); Monocyte# 0.65 X10^3/uL; Monocyte% 7.2 % (0-10); NRBC Flagged by Analyzer 0 % (0-5); Neutrophil # 6.75 X10^3/uL (2.7-7.7); Neutrophil % 74.6 % (47-70); Platelet Count 135 K/mm3 (150-450); RBC Distribution Width CV 16.9 % (11.6-14.6); RBC Distribution Width SD 50.9 fl (35.1-43.9); Red Blood Count 4.52 M/mm3 (4.2-5.4)
[2025-01-07] MEDS: Oxytocin 15 Units/NS 250ml 15 UNITS/250 ML IV.SOLN 2 UNITS IV (08:45)
[2025-01-07 09:03] LABS: Syphilis Antibodies Nonreactive (Nonreactive)
[2025-01-07] MEDS: Lactated Ringers 1,000 ML 999 ML IV (10:49)
[2025-01-07] MEDS: fentaNYL-bupivacaine (epidural) 100 ML BAG EPIDURAL (11:15)
--- NOTE | 2025-01-07 13:17 | HP.PCM.OB_ITS ---
HPI - General General Date of Admission: 01/07/25 Date of Service: 01/07/25 Chief Complaint: induction of labor HPI Narrative ANGEL POWER, is a 24 F who presents elective induction of labor with EFW of 98% Maternal Data Information Final JAZZY: 01/12/25 Gestational age: 39+2 PFSH PFS Medical History Gestational thrombocytopenia depression Headache Anxiety Depression Home Medications ?Medication ?Instructions ?Recorded ?Last Taken ?Type 1 tab OTHER DAILY 06/30/21 01/06/25 07:00 History ferrous sulfate 325 mg (65 mg 325 mg PO DAILY anemia 0 01/07/25 01/06/25 07:00 History iron) tablet (Feosol) Allergy/AdvReac Type Severity Reaction Status Date / Time No Known Allergies Allergy Verified 01/07/25 07:14 Surgical History History of surgery Social History Smoking Status: Former smoker History 3 Elective abortions Hx Para 1 Spontaneous abortions Hx # Term Pregnancies Ectopic pregnancies Hx # Pregnancies Multiple births # of living children ROS Constitutional Constitutional: Denies fatigue, fever(s) or malaise Eyes Eyes: Denies change in vision ENT HEENT: Denies dizziness or headache(s) Cardiovascular Cardiovascular: Denies chest pain, dyspnea or lightheadedness Respiratory/Chest Respiratory/Chest: Denies cough or dyspnea Gastrointestinal Gastrointestinal: Denies change in bowel habits Genitourinary Genitourinary: Denies burning urination or genital lesions Integumentary Integumentary: Denies rash Neurologic Neurologic: Denies confusion, dizziness, headache(s), numbness or weakness Vital Signs Vital Signs Vital Signs: 01/07/25 07:57 01/07/25 07:57 01/07/25 08:02 Temperature Temperature Source Pulse Rate 96 103 H Respiratory Rate Blood Pressure 119/70 BP Systolic 119 BP Diastolic 70 Pulse Ox 01/07/25 08:02 01/07/25 08:03 01/07/25 08:03 Temperature Temperature Source Temporal Pulse Rate Respiratory Rate 16 Blood Pressure BP Systolic BP Diastolic Pulse Ox 97 01/07/25 08:03 01/07/25 08:03 01/07/25 09:29 Temperature 97.9 F Temperature Source Pulse Rate Respiratory Rate Blood Pressure 125/68 H BP Systolic 125 BP Diastolic 68 Pulse Ox 97 01/07/25 09:29 01/07/25 09:29 01/07/25 09:30 Temperature Temperature Source Temporal Pulse Rate 84 Respiratory Rate Blood Pressure BP Systolic BP Diastolic Pulse Ox 97 01/07/25 09:30 01/07/25 09:30 01/07/25 09:30 Temperature 97.8 F Temperature Source Pulse Rate Respiratory Rate 16 Blood Pressure BP Systolic BP Diastolic Pulse Ox 97 01/07/25 10:48 01/07/25 10:48 01/07/25 10:51 Temperature Temperature Source Temporal Pulse Rate 79 Respiratory Rate Blood Pressure 121/73 H BP Systolic 121 BP Diastolic 73 Pulse Ox 01/07/25 10:51 01/07/25 10:51 01/07/25 11:02 Temperature 97.8 F Temperature Source Pulse Rate 167 H Respiratory Rate 18 Blood Pressure BP Systolic BP Diastolic Pulse Ox 01/07/25 11:02 01/07/25 11:07 01/07/25 11:07 Temperature Temperature Source Pulse Rate 82 Respiratory Rate Blood Pressure BP Systolic BP Diastolic Pulse Ox 99 99 01/07/25 11:11 01/07/25 11:11 01/07/25 11:14 Temperature Temperature Source Pulse Rate 86 87 Respiratory Rate Blood Pressure 132/75 H BP Systolic 132 BP Diastolic 75 Pulse Ox 01/07/25 11:14 01/07/25 11:15 01/07/25 11:16 Temperature Temperature Source Pulse Rate Respiratory Rate 18 Blood Pressure 120/75 BP Systolic 120 BP Diastolic 75 Pulse Ox 98 01/07/25 11:16 01/07/25 11:19 01/07/25 11:19 Temperature Temperature Source Pulse Rate 95 98 Respiratory Rate Blood Pressure BP Systolic BP Diastolic Pulse Ox 99 01/07/25 11:20 01/07/25 11:22 01/07/25 11:22 Temperature Temperature Source Pulse Rate 96 Respiratory Rate 16 Blood Pressure 116/69 BP Systolic 116 BP Diastolic 69 Pulse Ox 01/07/25 11:24 01/07/25 11:24 01/07/25 11:25 Temperature Temperature Source Pulse Rate 105 H Respiratory Rate 15 Blood Pressure BP Systolic BP Diastolic Pulse Ox 99 01/07/25 11:26 01/07/25 11:26 01/07/25 11:29 Temperature Temperature Source Pulse Rate 105 H 96 Respiratory Rate Blood Pressure 116/70 BP Systolic 116 BP Diastolic 70 Pulse Ox 01/07/25 11:29 01/07/25 11:30 01/07/25 11:31 Temperature Temperature Source Pulse Rate Respiratory Rate 15 Blood Pressure 111/69 BP Systolic 111 BP Diastolic 69 Pulse Ox 100 01/07/25 11:31 01/07/25 11:34 01/07/25 11:34 Temperature Temperature Source Pulse Rate 100 101 H Respiratory Rate Blood Pressure BP Systolic BP Diastolic Pulse Ox 100 01/07/25 11:35 01/07/25 11:35 01/07/25 11:35 Temperature 97.4 F L Temperature Source Temporal Pulse Rate Respiratory Rate 15 Blood Pressure BP Systolic BP Diastolic Pulse Ox 01/07/25 11:37 01/07/25 11:37 01/07/25 11:39 Temperature Temperature Source Pulse Rate 99 91 Respiratory Rate Blood Pressure 117/72 BP Systolic 117 BP Diastolic 72 Pulse Ox 01/07/25 11:39 01/07/25 11:41 01/07/25 11:41 Temperature Temperature Source Pulse Rate 100 Respiratory Rate Blood Pressure 117/73 BP Systolic 117 BP Diastolic 73 Pulse Ox 99 01/07/25 11:44 01/07/25 11:44 01/07/25 11:47 Temperature Temperature Source Pulse Rate 111 H Respiratory Rate Blood Pressure 112/72 BP Systolic 112 BP Diastolic 72 Pulse Ox 100 01/07/25 11:47 01/07/25 12:12 01/07/25 12:12 Temperature Temperature Source Pulse Rate 100 82 Respiratory Rate Blood Pressure 100/51 L BP Systolic 100 BP Diastolic 51 Pulse Ox 01/07/25 12:12 01/07/25 12:12 01/07/25 13:00 Temperature Temperature Source Pulse Rate Respiratory Rate 16 Blood Pressure 123/75 H BP Systolic 123 BP Diastolic 75 Pulse Ox 100 01/07/25 13:00 01/07/25 13:00 01/07/25 13:00 Temperature Temperature Source Temporal Pulse Rate 87 Respiratory Rate 16 Blood Pressure BP Systolic BP Diastolic Pulse Ox 01/07/25 13:00 01/07/25 13:00 Temperature 97.4 F L Temperature Source Pulse Rate Respiratory Rate Blood Pressure BP Systolic BP Diastolic Pulse Ox 100 Weight Weight: 95.254 kg Body Mass Index (BMI) 37.2 Physical Exam Const alert and no apparent distress General Appearance: cooperative HEENT normocephalic Resp normal respiratory effort Cardio regular rate GI soft to palpation GI Narrative: gravid, nontender, appropriate for gestational age Extremity no calf tenderness General Extremity: edema Skin no wounds Rashes: No rashes noted Psych activity/motor behavior normal Labs Labs Labs: Blood Type O POSITIVE Antibody Screen NEGATIVE Hct 37.7 % (37-47) Hgb 12.5 g/dL (12.0-15.0) Obstetrics Ultrasound Syphilis Total Ab Nonreactive (Nonreactive) Rhogam given: No Assessment & Plan (1) Elective induction of labor planned: (2) 39 weeks gestation of : PLAN: Plan Pitocin. AROM and epidural
--- NOTE | 2025-01-07 13:17 | PCM.PN.OB ---
Subjective Subjective AROM for clear fluid. 3/80/-[address] Pit at 2 MUs Objective Data Objective Data Vital Signs: Vital Signs Temp Pulse Resp BP Pulse Ox 97.4 F L 87 16 123/75 H 100 01/07/25 13:00 01/07/25 13:00 01/07/25 13:00 01/07/25 13:00 01/07/25 13:00 Weight: 95.254 kg Body Mass Index (BMI) 37.2 Intake & Output: Intake and Output for Last 24 Hours 01/05/25 01/06/25 01/07/25 23:59 23:59 23:59 Intake Total 306.87 / 306.87 Output Total 1050 / 1050 Balance -743.13 / -743.13 Lab / Micro Data 01/07/25 07:45 Labs: Laboratory Results - last 24 hr 01/07/25 07:45: WBC 9.0, RBC 4.52, Hgb 12.5, Hct 37.7, MCV 83.4, MCH 27.7, MCHC 33.2, RDW Std Deviation 50.9 H, RDW Coeff of Gareth 16.9 H, Plt Count 135 L, MPV 10.2, Immature Gran % (Auto) 0.700, Neut % (Auto) 74.6 H, Lymph % (Auto) 14.3 L, [place] % (Auto) 7.2, Eos % (Auto) 2.8, Baso % (Auto) 0.4, Absolute Neuts (auto) 6.8, Absolute Lymphs (auto) 1.29, Nucleated RBC % 0, Syphilis Total Ab Nonreactive, Blood Type O POSITIVE, Antibody Screen NEGATIVE NST FHR Rate Baby A Baseline: 130 Variability:: Moderate Accelerations:: 15 x 15 Decelerations:: None NST Reactive:: Yes FHR Category:: Category I Uterine Activity:: q 2-3 Assessment & Plan (1) Elective induction of labor planned: (2) 39 weeks gestation of :
--- NOTE | 2025-01-07 15:35 | OB.VAGDELI_ITS ---
Assessment & Plan (1) (spontaneous vaginal delivery): (2) 39 weeks gestation of : Maternal Data Information Final JAZZY: 01/12/25 Gestational age: 39+2 Vaginal Delivery Maternal Presentation Maternal Presentation: Elective Induction Type of Induction: Pitocin and Amniotomy Vaginal Delivery Information Procedure Performed: Spontaneous Vaginal Delivery Surgeon/Practitioner: Phylicia Juarez Date of Procedure: 01/07/25 Pre-Procedure Diagnosis: Term Post-Procedure Diagnosis: Type of anesthesia: Epidural Estimated Blood Loss: 200 cc Time of Delivery: 15:26 Findings Description of procedure: AROM at 3 cm for clear fluid. Patient quickly progressed to complete and 2 hour later delivered the vertex over an intact peritoneum. There was a cord around the next x 1 that was easily reduced. The anterior and posterior shoulders delivered spontaneously. The infant cried upon delivery. The cord was clamped cut. Cord blood was collected. The placenta delivered with gentle traction. There were no lacerations for repair. All sponge, needle, and instrument counts were correct. 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
[2025-01-07] MEDS: Oxytocin 15 Units/NS 250ml 15 UNITS/250 ML IV.SOLN 83 UNITS IV (15:58)
[2025-01-08 00:05] VITALS: BP 120/75; PULSE 100; RESP 16; TEMP 36.7; O2SAT 96
[2025-01-08] MEDS: Ibuprofen 600 MG Tablet PO ×2 (00:18→13:44)
[2025-01-08 04:15] VITALS: BP 108/70; PULSE 79; RESP 18; TEMP 36.6; O2SAT 98
--- NOTE | 2025-01-08 06:51 | PCM.PN.OB ---
Subjective Subjective Doing well. Ambulating and voiding without difficulty. Mild lochia. Bottle feeding. Objective Data Objective Data Vital Signs: Vital Signs Temp Pulse Resp BP Pulse Ox O2 Del Method 97.8 F 79 18 108/70 98 Room Air 01/08/25 04:15 01/08/25 04:15 01/08/25 04:15 01/08/25 04:15 01/08/25 04:15 01/08/25 04:15 Oxygen Delivery Method Room Air Weight: 95.254 kg Body Mass Index (BMI) 37.2 Intake & Output: Intake and Output for Last 24 Hours 01/06/25 01/07/25 01/08/25 23:59 23:59 23:59 Intake Total 2729.10 / 2729.10 Output Total 1550 / 1550 900 / 900 Balance 1179.10 / 1179.10 -900 / -900 Lab / Micro Data 01/07/25 07:45 Labs: Laboratory Results - last 24 hr 01/07/25 07:45: WBC 9.0, RBC 4.52, Hgb 12.5, Hct 37.7, MCV 83.4, MCH 27.7, MCHC 33.2, RDW Std Deviation 50.9 H, RDW Coeff of Gareth 16.9 H, Plt Count 135 L, MPV 10.2, Immature Gran % (Auto) 0.700, Neut % (Auto) 74.6 H, Lymph % (Auto) 14.3 L, [place] % (Auto) 7.2, Eos % (Auto) 2.8, Baso % (Auto) 0.4, Absolute Neuts (auto) 6.8, Absolute Lymphs (auto) 1.29, Nucleated RBC % 0, Syphilis Total Ab Nonreactive, Blood Type O POSITIVE, Antibody Screen NEGATIVE ROS Constitutional Constitutional: Denies headache(s) Cardiovascular Cardiovascular: Denies chest pain or dyspnea Gastrointestinal Gastrointestinal: Denies nausea or vomiting Genitourinary Genitourinary: Denies dysuria Physical Exam Const alert, oriented x3 and no apparent distress General Appearance: cooperative and comfortable Eyes PERRL and EOMs intact bilaterally Resp normal respiratory effort GI soft to palpation and non-tender Uterus Palpation: uterus fundus firm ( below umbilicus) Extremity normal to inspection and full ROM Neuro oriented x3 and CN's II-XII intact bilaterally Psych mental status grossly normal Assessment & Plan (1) (spontaneous vaginal delivery): PLAN: Plan Discharge home after 24 hour testing
--- NOTE | 2025-01-08 06:52 | PCM.DC.SUM ---
Providers Date of Admission: 01/07/25 Date of Discharge: 01/08/25 Primary Care Physician: No Primary Care Phys Reason For Visit: VAGINAL DELIVERY Diagnosis Discharge Diagnosis (1) (spontaneous vaginal delivery): Status: Acute Code(s): O80 - Encounter for full-term uncomplicated delivery Plan Discharge home after 24 hour testing Medications at Discharge Home Medications 1 tab OTHER DAILY 06/30/21 ferrous sulfate 325 mg (65 mg iron) tablet (Feosol) 325 mg PO DAILY anemia 01/07/25 Hospital Course Operations None Procedures None Summary of Care Provided Minutes Spent on Discharge: 20 Hospital Course: Induction of labor for LGA, without complication. No complications Physical Exam Const alert and no apparent distress Narrative: Fundus firm, below umbilicus. Weight / BMI Weight Weight: 95.254 kg Body Mass Index (BMI) 37.2 ABG / Lab / Microbiology Data 01/07/25 07:45 Laboratory: Laboratory Results - last 24 hr 01/07/25 07:45: WBC 9.0, RBC 4.52, Hgb 12.5, Hct 37.7, MCV 83.4, MCH 27.7, MCHC 33.2, RDW Std Deviation 50.9 H, RDW Coeff of Gareth 16.9 H, Plt Count 135 L, MPV 10.2, Immature Gran % (Auto) 0.700, Neut % (Auto) 74.6 H, Lymph % (Auto) 14.3 L, [place] % (Auto) 7.2, Eos % (Auto) 2.8, Baso % (Auto) 0.4, Absolute Neuts (auto) 6.8, Absolute Lymphs (auto) 1.29, Nucleated RBC % 0, Syphilis Total Ab Nonreactive, Blood Type O POSITIVE, Antibody Screen NEGATIVE D/C Instructions May resume sexual activity in: 6 weeks DC O2, CPAP, BIPAP Needs Home O2 Discharge instructions: No Please Follow Up With: Starr De La Torre MD When: Follow up with our office in 1-2 and 6 weeks or as needed. [phone] Meaningful Use Info Meaningful Use Meaningful Use Diagnoses (Choose all that apply): None applicable Ischemic Stroke Statin Dosing Therapy Reference: STATIN DOSE THERAPY REFERENCE: * Patients > 75 years receive moderate or high dose statin therapy. * Patients 75 years or YOUNGER should receive HIGH intensity statin dose unless contraindicated. You will be required to document reason for non-treatment if statin daily dose does not meet guidelines. HIGH DOSE STATIN THERAPY DAILY Atorvastatin > than or = to 40 mg Rosuvastatin > than or = to 20 mg Amlodipine + Atorvastatin > than or = to 2.5/40 mg Ezetimibe + Simvastatin 10/80 mg Simvastatin 80mg Discharge Plan Admission Admit Date/Time: 01/07/25 07:16 Primary Reason for Your Visit: labor Attending Provider: Phylicia Juarez Primary Care Provider: Care Physician,No Primary Discharge Orders/Prescriptions Prescriptions: Continued 1 tab 1 tab OTHER DAILY ferrous sulfate [Feosol] 325 mg (65 mg iron) tablet 325 mg PO DAILY Referrals / Follow Up: Care Physician,No Primary [Primary Care Provider] - Disposition Disposition (needs filled in before D/C Order can be placed): Home, Self Care
[2025-01-08 08:18] VITALS: BP 109/75; PULSE 84; RESP 16; TEMP 36.2
[2025-01-08 12:00] VITALS: BP 118/75; PULSE 91; RESP 16; TEMP 36.2
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
[2025-01-08 16:00] VITALS: BP 117/65; PULSE 94; RESP 16; TEMP 36.3
== END 2025-01-08 16:50 | disposition home or self-care (01) | DRG 807 ==
PROVIDERS: Admitting Provider Obstetrics & Gynecology; Referring Provider Obstetrics & Gynecology; Visit Provider Obstetrics & Gynecology
DX: O36.63X0 Maternal care for excessive fetal growth, third trimester, not applicable or unspecified (principal); Z37.0 Single live birth; N96 Recurrent pregnancy loss; O69.81X0 Labor and delivery complicated by cord around neck, without compression, not applicable or unspecified; Z87.891 Personal history of nicotine dependence; Z3A.39 39 weeks gestation of pregnancy; O99.893 Other specified diseases and conditions complicating puerperium
CPT/HCPCS: 85025; 86780; 86850; 86900; 86901; 99221; G0378